=== PATIENT | male | born 1980 | race Caucasian/White ===

== ENCOUNTER → 2017-08-24 09:43 | Outpatient (CLI) | payer MEDICARE, OTHER, SELFPAY ==
--- NOTE | 2017-08-24 | DI.RAD.S_ITS ---
PROCEDURE: XR CERVICAL SPINE 2V OR 3V INDICATIONS: SPINAL STENOSIS TECHNIQUE: 3 view(s) of the cervical spine were acquired. COMPARISON: [facility], MR, C-SPINE W&WO CONTRAST, 05/19/2017, 15:44. FINDINGS: Bones: Straightening of cervical curvature. Mild disc space narrowing at C4-C5. No fractures or dislocations to the C7 level. There is discectomy and anterior fusion at C5-C6. The lateral masses of C1 appear intact on the odontoid view. No suspicious bony lesions. Soft tissues: No prevertebral soft tissue swelling. IMPRESSION: 1. Expected post surgical changes with discectomy and anterior fusion at C5-C6. 2. Mild loss of disc height at C4-C5. 3. Straightening of cervical curvature. Dictated by: Maegan Basurto M.D. on 08/24/2017 at 13:38 Approved by: Maegan Basurto M.D. on 08/24/2017 at 13:40
== END ==
PROVIDERS: PCP Internal Medicine; Visit Provider Neurological Surgery
DX: M48.02 Spinal stenosis, cervical region (principal); Z98.1 Arthrodesis status; M17.12 Unilateral primary osteoarthritis, left knee
CPT/HCPCS: 72040

== ENCOUNTER → 2017-10-27 13:03 | Outpatient (CLI) | payer MEDICARE, OTHER, SELFPAY ==
--- NOTE | 2017-10-27 | DI.RAD.S_ITS ---
PROCEDURE: XR CERVICAL SPINE 2V OR 3V INDICATIONS: SPINAL STENOSIS CERVICAL,SPONDYLOSIS WITH MYELOPATHY TECHNIQUE: 3 view(s) of the cervical spine were acquired. COMPARISON: [facility], CR, XR CERVICAL SPINE 2V OR 3V, 08/24/2017, 9:47. FINDINGS: Bones: No fractures or dislocations to the T1 level. Prior ACDF C5-C6 with hardware and bone graft in expected unchanged positions. There is loss of the normal cervical lordosis. Mild disc height loss again seen at the C4-C5 level unchanged. The lateral masses of C1 appear intact on the odontoid view. No suspicious bony lesions. Soft tissues: No prevertebral soft tissue swelling. IMPRESSION: 1. Stable postsurgical sequelae at the C5-C6 level and mild C4-C5 disc degeneration. Dictated by: Jose J Fraga [facility] Interpreted: James Arreaga MD on 10/27/2017 at 14:57 Approved by: James Arreaga M.D. on 10/27/2017 at 16:49
== END ==
PROVIDERS: Visit Provider Neurological Surgery
DX: M50.021 Cervical disc disorder at C4-C5 level with myelopathy (principal); M47.12 Other spondylosis with myelopathy, cervical region; M48.02 Spinal stenosis, cervical region; K42.9 Umbilical hernia without obstruction or gangrene
CPT/HCPCS: 72040; 99213

== ENCOUNTER → 2018-01-27 07:37 | Outpatient (CLI) | payer MEDICARE, OTHER, SELFPAY ==
--- NOTE | 2018-01-27 | DI.RAD.S_ITS ---
PROCEDURE: XR CERVICAL SPINE 2V OR 3V INDICATIONS: Spinal stenosis, cervical region TECHNIQUE: 3 view(s) of the cervical spine were acquired. COMPARISON: [facility], CR, XR CERVICAL SPINE 2V OR 3V, 10/27/2017, 13:58. FINDINGS: Bones: No fractures or dislocations to the C7 level. The lateral masses of C1 appear intact on the odontoid view. No suspicious bony lesions. C5-C6 ACDF and interbody cage graft in unchanged alignment. No evidence of hardware loosening. Straightening of the normal cervical lordosis. Mild narrowing of the C4-C5 disc space. Mild diffuse facet arthropathy Soft tissues: No prevertebral soft tissue swelling. IMPRESSION: Unchanged alignment of C5-C6 ACDF and interbody cage graft. Mild C4-C5 disc degeneration however unchanged. Straightening of the normal cervical lordosis and diffuse facet arthropathy. Dictated by: Gaston Gutierrez M.D. on 01/27/2018 at 9:27 Approved by: Gaston Gutierrez M.D. on 01/27/2018 at 9:28
== END ==
PROVIDERS: PCP Internal Medicine; Visit Provider Neurological Surgery
DX: M48.02 Spinal stenosis, cervical region (principal); M50.321 Other cervical disc degeneration at C4-C5 level; M47.812 Spondylosis without myelopathy or radiculopathy, cervical region; Z98.1 Arthrodesis status
CPT/HCPCS: 72040

== ENCOUNTER → 2018-01-31 09:03 | Outpatient (CLI) | payer MEDICARE, OTHER, SELFPAY ==
--- NOTE | 2018-01-31 | DI.MRI.S_ITS ---
PROCEDURE: MR HEAD/BRAIN WO/W CON INDICATIONS: PARETHESIAS TECHNIQUE: Noncontrast sagittal and axial FLAIR, axial and coronal T2 fast spin echo, axial VIBE, axial gradient echo, axial diffusion and ADC through the brain. After the administration of contrast, axial and coronal VIBE with fat saturation through the brain. COMPARISON: [facility], MR, BRAIN W&WO CONTRAST, 04/27/2017, 9:11. FINDINGS: Image quality: Excellent. CSF spaces: Ventricles are normal in size and shape. Basal cisterns are patent. No extra-axial fluid collections. Brain: No intracranial bleeds or mass effects. [place]-white matter interface appears intact. Focus of abnormal increased T2 signal in the right frontal periventricular white matter which has a longitudinal axis perpendicular to long axis lateral ventricle (Valentin's finger) is stable compared to 04/27/2017. Very small, punctate foci of increased T2 signal in the right frontal subcortical white matter are stable in size and contour compared to 04/27/2017. No new white matter signal abnormalities identified. No abnormal intracranial enhancement. Diffusion weighted images show no acute ischemic insults. Brainstem appears normal. 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 Normal intravascular flow voids are present. Skull and face: Calvarial marrow signal is normal. Orbits appear normal. Sinuses: Sinuses and mastoids are clear. IMPRESSION: 1. Foci of increased T2 signal involving the right frontal periventricular and subcortical white matter are stable in size and contour compared to 04/27/2017. Right frontal periventricular white matter lesion has imaging characteristics highly suspicious for multiple sclerosis. No new white matter lesions identified. 2. No abnormal postcontrast enhancement. Dictated by: Rosaura Dickinson MD, PhD on 01/31/2018 at 10:09 Approved by: Rosaura Dickinson MD, PhD on 01/31/2018 at 10:16
== END ==
PROVIDERS: PCP Internal Medicine; Visit Provider Physician Assistant
DX: R20.2 Paresthesia of skin (principal)
CPT/HCPCS: 70553

== ENCOUNTER → 2018-11-17 07:03 | Outpatient (CLI) | payer MEDICARE, OTHER, SELFPAY ==
[2018-11-17 08:37] LABS: Add Manual Diff / Slide Review NO; Basophils Absolute Auto 100 /uL (0-100); Basophils Percent Auto 1.1 % (0-2); Eosinophils Absolute Auto 300 /uL (0-450); Eosinophils Percent Auto 5.9 % (2-4); Hematocrit 40.9 % (41-53); Hemoglobin 14.3 g/dL (13.5-17.5); Lymphocytes Absolute Auto 2400 /uL (1100-4500); Lymphocytes Percent Auto 42.2 % (25-40); Mean Corpuscular Hemoglobin 33.6 PG (26-34); Mean Corpuscular Volume 95.8 fL (80-100); Monocytes Absolute Auto 600 /uL (0-900); Monocytes Percent Auto 10.2 % (3-14); Neutrophils Absolute Auto 2300 /uL (1500-7000); Neutrophils Percent Auto 40.6 % (50-75); Platelet Count 238 X10^3/uL (150-400); Red Blood Cell Count 4.26 X10^6/uL (4.5-5.9); Red Cell Distribution Width 13.4 % (11.6-14.8); White Blood Cell Count 5.6 X10^3/uL (4.5-11.0)
[2018-11-17 09:21] LABS: Alanine Aminotransferase 29 IU/L (21-72); Albumin 4.4 g/dL (3.5-5.0); Albumin Globulin Ratio 1.6 (1.0-2.8); Alkaline Phosphatase 71 U/L (38-126); Aspartate Aminotransferase 61 IU/L (17-59); BUN Creatinine Ratio 11.1 (6-22); Bilirubin Total 0.4 mg/dL (0.2-1.3); Blood Urea Nitrogen 10 mg/dL (9-20); Calcium 9.8 mg/dL (8.4-10.2); Carbon Dioxide 28 mmol/L (22-32); Chloride 102 mmol/L (98-107); Estimated Glomerular Filt Rate > 60.0 mL/min (>60); Globulin 2.8 g/dL (1.7-4.1); Glucose 92 mg/dL (70-100); HEMOLYSIS < 15 (0-50); Potassium 4.5 mmol/L (3.4-5.1); Sodium 141 mmol/L (137-145); Total Protein 7.2 g/dL (6.3-8.2)
[2018-11-17 09:25] LABS: C-Reactive Protein Quant < 0.5 mg/dL (<1.0)
== END ==
PROVIDERS: Internal Medicine Rheumatology; PCP Internal Medicine; Visit Provider Internal Medicine
DX: Z79.899 Other long term (current) drug therapy (principal); M13.80 Other specified arthritis, unspecified site
CPT/HCPCS: 36415; 80053; 85025; 86140

== ENCOUNTER → 2019-01-30 07:32 | Outpatient (CLI) | payer MEDICARE, OTHER, SELFPAY ==
--- NOTE | 2019-01-30 | DI.MRI.S_ITS ---
PROCEDURE: MR CERVICAL SPINE WO/W CON INDICATIONS: abn brain mri TECHNIQUE: Noncontrast sagittal T1 spin echo and T2 fast spin echo, sagittal STIR, sagittal PD fast spin echo, foraminal oblique sagittal T2 fast spin echo, axial gradient echo or T2 fast spin echo through the cervical spine. After the administration of contrast, sagittal and axial T1 spin echo with fat saturation through the cervical spine. COMPARISON: [facility], CR, XR CERVICAL SPINE 2V OR 3V, 01/27/2018, 7:48. [facility], CR, XR CERVICAL SPINE 2V OR 3V, 10/27/2017, 13:58. [facility], CR, XR CERVICAL SPINE 2V OR 3V, 08/24/2017, 9:47. [facility], MR, C-SPINE W&WO CONTRAST, 05/19/2017, 15:44. [facility], MR, MR HEAD/BRAIN WO/W CON, 01/30/2019, 7:55. FINDINGS: Image quality: Excellent. Alignment and curvature: There is normal bony alignment. Bones: Postsurgical changes compatible C5-C6 ACDF. Marrow demonstrates normal overall signal. Spinal cord: Visualized spinal cord is normal in size, without white matter lesions. No suspicious intramedullary enhancement. No cerebellar tonsillar herniation. Paraspinous soft tissues: No paravertebral masses or suspicious enhancement. C2-C3: Loss of disc signal. Minimal, diffuse disc bulge. No central stenosis. No neural foraminal narrowing. No neural compression. C3-C4: Loss of disc signal. Minimal, diffuse disc bulge. Mild No central stenosis. No neural foraminal narrowing. No neural compression. C4-C5: Loss of disc signal and slight loss of disc height. Mild, diffuse disc bulge. Moderate narrowing of the central canal. Mild bilateral neural foraminal narrowing. No neural compression. C5-C6: Status post discectomy and fusion. No central stenosis. No neural foraminal narrowing. No neural compression. C6-C7: Loss of disc signal. Mild, diffuse disc bulge. Mild to moderate narrowing of the central canal. Mild right neural foraminal narrowing. No neural compression. C7-T1: Normal appearance. IMPRESSION: 1. No abnormal spinal cord signal or suspicious postcontrast enhancement. 2. Status post C5-C6 ACDF. 3. Multilevel degenerative disc disease. 4. Moderate C4-C5 central canal narrowing. Mild to moderate C6-C7 central canal narrowing. 5. Mild bilateral C4-C5 neural foraminal narrowing. Mild right C6-C7 neural foraminal narrowing. 6. No neural compression. Dictated by: Rosaura Dickinson MD, PhD on 01/30/2019 at 12:20 Approved by: Rosaura Dickinson MD, PhD on 01/30/2019 at 12:28
--- NOTE | 2019-01-30 | DI.MRI.S_ITS ---
PROCEDURE: MR HEAD/BRAIN WO/W CON INDICATIONS: ABNORMAL BRAIN MRI TECHNIQUE: Noncontrast axial T1 spin echo, axial T2 fast spin echo, sagittal and axial FLAIR, coronal T2 fast spin echo, axial gradient echo, axial diffusion and ADC through the brain. After the administration of contrast, axial and coronal 3D VIBE or T1 spin echo with fat saturation through the brain. COMPARISON: [facility], , MR HEAD/BRAIN WO/W CON, 01/31/2018, 9:29. FINDINGS: Image quality: Excellent. CSF Spaces: Basal cisterns are patent. No extra-axial fluid collections. Ventricles are normal in size and shape. Brain: No midline shift. No intracranial bleeds or masses. No abnormal intracranial enhancement. The previously seen focus of elevated FLAIR signal intensity within the right frontal periventricular white matter measuring roughly 12 mm is unchanged, demonstrating a long axis perpendicular to the long axis of the lateral ventricle. The punctate foci of elevated FLAIR signal within the right posterior superior frontal subcortical white matter are also unchanged. There are no new regions of abnormal signal intensity within the cerebrum nor cerebellum. The brainstem appears normal. Diffusion-weighted images demonstrate no acute ischemic insults. No chronic ischemic insults. Normal intravascular flow voids are present. Skull and face: Calvarial marrow is normal in signal. Orbits appear normal. Sinuses: Sinuses and mastoids appear clear. IMPRESSION: 1. No significant change in right frontal white matter lesions, which would be consistent with multiple sclerosis in the appropriate clinical and laboratory setting. Dictated by: Barbraa Tucker M.D. on 01/30/2019 at 9:44 Approved by: Barbara Tucker M.D. on 01/30/2019 at 9:48
--- NOTE | 2019-01-30 | DI.MRI.S_ITS ---
PROCEDURE: MR THORACIC SPINE WO/W CON INDICATIONS: ABNORMAL BRAIN MRI TECHNIQUE: Noncontrast sagittal T1 spin echo and T2 fast spin echo, sagittal STIR, axial T1 and T2 fast spin echo through the thoracic spine. After the administration of contrast, axial and sagittal T1 spin echo with fat saturation through the thoracic spine. COMPARISON: None. FINDINGS: Image quality: Excellent. Alignment and curvature: There is normal bony alignment. Marrow: Marrow is of normal overall signal. No acute vertebral body compression fractures. Spinal cord: Visualized spinal cord is of normal signal and size, without abnormal enhancement. Paraspinous soft tissues: No paravertebral masses or abnormal enhancement. Miscellaneous: Central canal and foramina appear widely patent at all scanned levels. IMPRESSION: 1. No abnormal spinal cord signal or suspicious intramedullary postcontrast enhancement. 2. No central stenosis. 3. No neural foraminal narrowing. 4. No neural compression. Dictated by: Rosaura Dickinson MD, PhD on 01/30/2019 at 13:20 Approved by: Rosaura Dickinson MD, PhD on 01/30/2019 at 13:22
== END ==
PROVIDERS: PCP Internal Medicine; Visit Provider Internal Medicine
DX: R90.89 Other abnormal findings on diagnostic imaging of central nervous system (principal); M50.323 Other cervical disc degeneration at C6-C7 level; M48.02 Spinal stenosis, cervical region; Z98.1 Arthrodesis status
CPT/HCPCS: 70553; 72156; 72157; A9579

== ENCOUNTER → 2019-04-17 12:09 | Outpatient (CLI) | payer MEDICARE, OTHER, SELFPAY ==
[2019-04-17 13:09] LABS: Add Manual Diff / Slide Review NO; Basophils Absolute Auto 100 /uL (0-100); Eosinophils Absolute Auto 500 /uL (0-450); Eosinophils Percent Auto 6.5 % (2-4); Hematocrit 40.3 % (41-53); Hemoglobin 14.1 g/dL (13.5-17.5); Lymphocytes Absolute Auto 2600 /uL (1100-4500); Lymphocytes Percent Auto 37.6 % (25-40); Mean Corpuscular HGB Conc 35.1 % (30-36); Mean Corpuscular Hemoglobin 33.6 PG (26-34); Mean Corpuscular Volume 95.6 fL (80-100); Monocytes Absolute Auto 600 /uL (0-900); Monocytes Percent Auto 9.2 % (3-14); Neutrophils Absolute Auto 3200 /uL (1500-7000); Neutrophils Percent Auto 45.7 % (50-75); Platelet Count 225 X10^3/uL (150-400); Red Blood Cell Count 4.21 X10^6/uL (4.5-5.9); Red Cell Distribution Width 13.1 % (11.6-14.8)
[2019-04-17 13:25] LABS: Alanine Aminotransferase 28 IU/L (<50); Albumin 4.6 g/dL (3.5-5.0); Albumin Globulin Ratio 1.4 (1.0-2.8); Alkaline Phosphatase 73 U/L (38-126); Aspartate Aminotransferase 67 IU/L (17-59); BUN Creatinine Ratio 12.2 (6-22); Bilirubin Total 0.4 mg/dL (0.2-1.3); Blood Urea Nitrogen 11 mg/dL (9-20); Calcium 9.5 mg/dL (8.4-10.2); Carbon Dioxide 28 mmol/L (22-32); Chloride 104 mmol/L (98-107); Estimated Glomerular Filt Rate > 60.0 mL/min (>60); Globulin 3.2 g/dL (1.7-4.1); Glucose 95 mg/dL (70-100); HEMOLYSIS < 15 (0-50); Potassium 3.9 mmol/L (3.4-5.1); Sodium 139 mmol/L (137-145); Total Protein 7.8 g/dL (6.3-8.2)
[2019-04-17 13:29] LABS: C-Reactive Protein Quant < 0.5 mg/dL (<1.0)
== END ==
PROVIDERS: PCP Internal Medicine; Referring Provider Internal Medicine Rheumatology; Visit Provider Internal Medicine Rheumatology
DX: M13.80 Other specified arthritis, unspecified site (principal); Z79.899 Other long term (current) drug therapy
CPT/HCPCS: 36415; 80053; 85025; 86140

== ENCOUNTER → 2019-08-07 11:42 | Outpatient (CLI) | payer MEDICARE, OTHER, SELFPAY ==
[2019-08-07 14:07] LABS: Add Manual Diff / Slide Review NO; Basophils Absolute Auto 0 /uL (0-100); Basophils Percent Auto 0.7 % (0-2); Eosinophils Absolute Auto 200 /uL (0-450); Eosinophils Percent Auto 2.7 % (2-4); Hematocrit 42.6 % (41-53); Hemoglobin 15.1 g/dL (13.5-17.5); Lymphocytes Absolute Auto 1900 /uL (1100-4500); Lymphocytes Percent Auto 33.6 % (25-40); Mean Corpuscular HGB Conc 35.4 % (30-36); Mean Corpuscular Hemoglobin 33.2 PG (26-34); Mean Corpuscular Volume 93.7 fL (80-100); Monocytes Absolute Auto 600 /uL (0-900); Monocytes Percent Auto 10.3 % (3-14); Neutrophils Absolute Auto 3000 /uL (1500-7000); Neutrophils Percent Auto 52.7 % (50-75); Platelet Count 217 X10^3/uL (150-400); Red Blood Cell Count 4.55 X10^6/uL (4.5-5.9); Red Cell Distribution Width 12.9 % (11.6-14.8); White Blood Cell Count 5.8 X10^3/uL (4.5-11.0)
[2019-08-07 14:31] LABS: Alanine Aminotransferase 21 IU/L (<50); Albumin 4.6 g/dL (3.5-5.0); Albumin Globulin Ratio 1.5 (1.0-2.8); Alkaline Phosphatase 85 U/L (38-126); Aspartate Aminotransferase 61 IU/L (17-59); Bilirubin Total 0.6 mg/dL (0.2-1.3); Blood Urea Nitrogen 15 mg/dL (9-20); Calcium 9.7 mg/dL (8.4-10.2); Carbon Dioxide 27 mmol/L (22-32); Chloride 100 mmol/L (98-107); Estimated Glomerular Filt Rate > 60.0 mL/min (>60); Glucose 79 mg/dL (70-100); HEMOLYSIS < 15 (0-50); Lipase 364 U/L (23-300); Potassium 3.6 mmol/L (3.4-5.1); Sodium 137 mmol/L (137-145); Total Protein 7.6 g/dL (6.3-8.2)
[2019-08-07 15:37] LABS: Clostridium Difficile Tox PCR Negative for C. diff
== END ==
PROVIDERS: PCP Internal Medicine; Referring Provider Student in an Organized Health Care Education/Training Program; Visit Provider Student in an Organized Health Care Education/Training Program
DX: R19.7 Diarrhea, unspecified (principal); R11.10 Vomiting, unspecified; R10.84 Generalized abdominal pain
CPT/HCPCS: 36415; 80053; 83690; 85025; 87045; 87177; 87493; 87899

== ENCOUNTER → 2019-08-17 15:00 | Outpatient (CLI) | payer MEDICARE, OTHER, SELFPAY ==
[2019-08-17 16:12] LABS: Add Manual Diff / Slide Review NO; Basophils Absolute Auto 0 /uL (0-100); Basophils Percent Auto 0.5 % (0-2); Eosinophils Absolute Auto 200 /uL (0-450); Eosinophils Percent Auto 2.2 % (2-4); Hematocrit 40.3 % (41-53); Hemoglobin 13.6 g/dL (13.5-17.5); Lymphocytes Absolute Auto 2100 /uL (1100-4500); Lymphocytes Percent Auto 30.8 % (25-40); Mean Corpuscular HGB Conc 33.8 % (30-36); Mean Corpuscular Hemoglobin 32.3 PG (26-34); Mean Corpuscular Volume 95.5 fL (80-100); Monocytes Absolute Auto 500 /uL (0-900); Neutrophils Absolute Auto 4000 /uL (1500-7000); Neutrophils Percent Auto 58.5 % (50-75); Platelet Count 253 X10^3/uL (150-400); Red Blood Cell Count 4.22 X10^6/uL (4.5-5.9); Red Cell Distribution Width 13.5 % (11.6-14.8); White Blood Cell Count 6.8 X10^3/uL (4.5-11.0)
[2019-08-17 16:39] LABS: Alanine Aminotransferase 21 IU/L (<50); Albumin 4.5 g/dL (3.5-5.0); Albumin Globulin Ratio 1.6 (1.0-2.8); Alkaline Phosphatase 75 U/L (38-126); Aspartate Aminotransferase 67 IU/L (17-59); BUN Creatinine Ratio 9.5 (6-22); Bilirubin Total 0.4 mg/dL (0.2-1.3); Blood Urea Nitrogen 9 mg/dL (9-20); Calcium 9.6 mg/dL (8.4-10.2); Carbon Dioxide 27 mmol/L (22-32); Chloride 106 mmol/L (98-107); Estimated Glomerular Filt Rate > 60.0 mL/min (>60); Globulin 2.9 g/dL (1.7-4.1); Glucose 110 mg/dL (70-100); HEMOLYSIS < 15 (0-50); Potassium 3.9 mmol/L (3.4-5.1); Sodium 140 mmol/L (137-145); Total Protein 7.4 g/dL (6.3-8.2)
[2019-08-17 16:42] LABS: C-Reactive Protein Quant < 0.5 mg/dL (<1.0)
== END ==
PROVIDERS: PCP Internal Medicine; Referring Provider Internal Medicine Rheumatology; Visit Provider Internal Medicine Rheumatology
DX: Z79.899 Other long term (current) drug therapy (principal); M13.80 Other specified arthritis, unspecified site
CPT/HCPCS: 36415; 80053; 85025; 86140

== ENCOUNTER → 2019-12-22 | Outpatient (CLI) | payer MEDICARE, OTHER, SELFPAY ==
--- NOTE | 2019-12-22 | DI.RAD.S_ITS ---
PROCEDURE: XR TOE RT MIN 2V INDICATIONS: STRAIN OF FOURTH TOE OF RIGHT FOOT TECHNIQUE: 3 views of the right toe(s) acquired. COMPARISON: None. FINDINGS: Bones: No fractures or dislocations. No suspicious bony lesions. Soft tissues: No suspicious soft tissue densities. IMPRESSION: No fracture. If the patient's pain or other symptoms persist, consider further evaluation with MRI Dictated by: Gaston Gutierrez M.D. on 12/22/2019 at 16:36 Approved by: Gaston Gutierrez M.D. on 12/22/2019 at 16:39
[2019-12-22 15:20] LABS: Add Manual Diff / Slide Review NO; Basophils Absolute Auto 100 /uL (0-100); Basophils Percent Auto 0.9 % (0-2); Eosinophils Absolute Auto 500 /uL (0-450); Eosinophils Percent Auto 6.7 % (2-4); Hematocrit 40.6 % (41-53); Hemoglobin 13.6 g/dL (13.5-17.5); Lymphocytes Absolute Auto 2200 /uL (1100-4500); Lymphocytes Percent Auto 30.7 % (25-40); Mean Corpuscular HGB Conc 33.5 % (30-36); Mean Corpuscular Hemoglobin 30.9 PG (26-34); Mean Corpuscular Volume 92.5 fL (80-100); Monocytes Absolute Auto 600 /uL (0-900); Monocytes Percent Auto 8.4 % (3-14); Neutrophils Absolute Auto 3800 /uL (1500-7000); Neutrophils Percent Auto 53.3 % (50-75); Platelet Count 302 X10^3/uL (150-400); Red Cell Distribution Width 12.3 % (11.6-14.8); White Blood Cell Count 7.1 X10^3/uL (4.5-11.0)
[2019-12-22 15:40] LABS: BUN Creatinine Ratio 14.9 (6-22); Blood Urea Nitrogen 13 mg/dL (9-20); C-Reactive Protein Quant 2.4 mg/dL (<1.0); Calcium 9.3 mg/dL (8.4-10.2); Carbon Dioxide 30 mmol/L (22-32); Chloride 106 mmol/L (98-107); Estimated Glomerular Filt Rate > 60.0 mL/min (>60); Glucose 119 mg/dL (70-100); HEMOLYSIS < 15 (0-50); Potassium 3.9 mmol/L (3.4-5.1); Sodium 142 mmol/L (137-145); Uric Acid 6.6 mg/dL (3.5-8.5)
[2019-12-22 16:17] LABS: Erythrocyte Sedimentation Rate 40 MM/HR (0-15)
== END ==
PROVIDERS: PCP Physician Assistant; Referring Provider Physician Assistant; Visit Provider Physician Assistant
DX: D72.19 Other eosinophilia (principal); S96.911A Strain of unspecified muscle and tendon at ankle and foot level, right foot, initial encounter; M13.0 Polyarthritis, unspecified
CPT/HCPCS: 36415; 73620; 80048; 84550; 85025; 85651; 86140

== ENCOUNTER → 2020-05-20 10:03 | Outpatient (CLI) | payer MEDICARE, OTHER, SELFPAY ==
[2020-05-20 13:47] LABS: COVID19 -Nasal RAPID Negative (Negative)
== END ==
PROVIDERS: PCP Physician Assistant; Visit Provider Physician Assistant
DX: J02.9 Acute pharyngitis, unspecified (principal); R05 Cough; R06.02 Shortness of breath; R51.9 Headache, unspecified; Z20.822 Contact with and (suspected) exposure to COVID-19
CPT/HCPCS: 87635

== ENCOUNTER → 2021-02-18 12:31 | Outpatient (CLI) | payer MEDICARE, OTHER, SELFPAY ==
[2021-02-18 14:55] LABS: COVID19 -Nasal RAPID Negative (Negative)
== END ==
PROVIDERS: PCP Physician Assistant; Referring Provider Nurse Practitioner Family; Visit Provider Nurse Practitioner Family
DX: Z20.822 Contact with and (suspected) exposure to COVID-19 (principal)
CPT/HCPCS: 87635

== ENCOUNTER → 2021-09-11 11:14 | Outpatient (CLI) | payer MEDICARE, OTHER, SELFPAY ==
--- NOTE | 2021-09-11 11:16 | DI.RAD.S_ITS ---
PROCEDURE: XR THORACIC SPINE 3V INDICATIONS: Back pain TECHNIQUE: 3 views of the thoracic spine were acquired. COMPARISON: None. FINDINGS: Bones: No fractures or dislocations. No suspicious bony lesions. 12 pairs of ribs are noted, and appear intact where visualized. C5-C6 ACDF. Soft tissues: No paravertebral stripe thickening. IMPRESSION: No fracture. No acute osseous lesion. If symptoms and/or clinical suspicion for pathology persists, evaluation with MRI should be considered for further assessment. Dictated by: Rosaura Dickinson MD, PhD on 09/11/2021 at 16:44 Approved by: Rosaura Dickinson MD, PhD on 09/11/2021 at 16:50
--- NOTE | 2021-09-11 11:16 | DI.RAD.S_ITS ---
PROCEDURE: XR LUMBAR SPINE 2-3V INDICATIONS: Back pain TECHNIQUE: 3 views of the lumbar spine were acquired. COMPARISON: None. FINDINGS: Bones: 5 [id number] vertebrae are present. There is normal bony alignment. No vertebral body compression fractures. No suspicious bony lesions. Soft tissues: Overlying bowel gas pattern is normal. No suspicious soft tissue calcifications. IMPRESSION: No fracture. No osseous lesion. If symptoms and/or clinical suspicion for pathology persists, evaluation with MRI should be considered for further assessment. Dictated by: Rosaura Dickinson MD, PhD on 09/11/2021 at 16:50 Approved by: Rosaura Dickinson MD, PhD on 09/11/2021 at 16:50
== END ==
PROVIDERS: PCP Physician Assistant; Referring Provider Nurse Practitioner Family; Visit Provider Nurse Practitioner Family
DX: S29.012A Strain of muscle and tendon of back wall of thorax, initial encounter (principal); X58.XXXA Exposure to other specified factors, initial encounter; Z98.1 Arthrodesis status; M54.9 Dorsalgia, unspecified
CPT/HCPCS: 72072; 72100

== ENCOUNTER 2021-09-17 20:15 | Emergency (ER) | payer MEDICARE, OTHER, SELFPAY ==
[2021-09-17 20:47] VITALS: BP 126/83; PULSE 92; RESP 18; TEMP 36.9; O2SAT 97; BMI 30.7
--- NOTE | 2021-09-17 20:57 | ED_ITS ---
HPI - Recheck/Abnormal Lab/Rx General Chief Complaint: Recheck/Abnormal Lab/Rx Stated Complaint: sent by MD for elevated D Dimer Time Seen by Provider: 09/17/21 20:57 Source: patient Mode of arrival: Ambulatory History of Present Illness HPI narrative: 41-year-old gentleman with a history of multiple autoimmune disorders including eosinophilic esophagitis was seen by his primary care doctor today with complaints of left calf pain and a persistent cough. Both of these have been present for almost 3 months. Blood work was done revealing a D-dimer at 0.71 with normal range being 0.27-0.49. White count was 8, H&H is 15.1 and 44.9, pl atelets 310, C reactive protein at 2.9, chemistries otherwise unremarkable. His primary care doctor called him this evening and suggested he come to the ER for further evaluation light of the elevated D-dimer and calf pain. Medications include gabapentin, trazodone, Zofran, Zyrtec, propranolol, Claritin, omeprazole Related Data Home Medications Medication Instructions Recorded Confirmed gabapentin 600 mg tablet 600 mg PO DAILY 10/27/17 09/11/21 duloxetine PO 01/17/20 09/11/21 methylprednisolone PO 01/17/20 09/11/21 Allergies Allergy/AdvReac Type Severity Reaction Status Date / Time pneumococcal vaccine Allergy Unknown Verified 09/11/21 10:27 Sulfa (Sulfonamide Allergy Unknown Verified 09/11/21 10:27 Antibiotics) tree and shrub pollen Allergy Verified 09/11/21 10:27 venom-honey bee Allergy Verified 09/11/21 10:27 Review of Systems Review of Systems Narrative: Pertinent positive and negative findings as per HPI Remainder of review of systems is otherwise unremarkable for Constitutional: Fevers, chills, weakness ENT: No sore throat, neck pain, ear pain CV: Chest pain, palpitations, GI: Nausea, vomiting, diarrhea, : Dysuria, hematuria, Patient History Medical History Laceration of right lower extremity Rheumatoid arthritis Seasonal allergies Surgical History S/P cervical spinal fusion Family History Father Hypertension Heart disease Diabetes mellitus Mother Heart disease Diabetes mellitus Grandmother Cancer Grandfather Cancer Social History marital status: household members: spouse and children occupational status: student Smoking Status: Never smoker alcohol intake: never substance use type: does not use Smoking Status: Never smoker Exam Initial Vital Signs Initial Vital Signs: Vital Signs Temperature 98.5 F 09/17/21 20:47 Pulse Rate 92 H 09/17/21 20:47 Respiratory Rate 18 09/17/21 20:47 Blood Pressure 126/83 09/17/21 20:47 Pulse Oximetry 97 09/17/21 20:47 Oxygen Delivery Method 09/17/21 20:47 General: Healthy appearing, in no acute distress. Able to give a complete and coherent history. Well-nourished well-developed HEENT: Moist mucous membranes, normal sclera with reactive pupils, Neck: No JVD, supple Respiratory: Lungs are clear to auscultation, no wheezing no rales no rhonchi. Full and symmetrical air movement Cardiac: Regular rate and rhythm no murmurs no bruits Abdomen: Soft, nontender, good bowel tones, no flank pain Skin: Warm and dry, no rashes Neurologic: Grossly neurologically intact with no obvious asymmetries or abnormalities Extremities: No trauma, well perfused, no lower extremity edema Psych: Cooperative, appropriate insight and affect Course Orders Ordered: ED Orders 09/17/21 20:55 D Dimer Stat Trop I [Troponin I] Stat 09/17/21 21:31 US periph venous low extrem lt Stat 09/17/21 22:12 CT angio chest PE protocol Stat Vital Signs Vital signs: Vital Signs - 8 hr 09/17/21 20:47 Temperature 98.5 F Pulse Rate 92 H Respiratory Rate 18 Blood Pressure 126/83 Pulse Oximetry 97 Oxygen Delivery Method Room Air MDM - Recheck/Abnormal Lab/Rx Lab Data Labs: Lab Results 09/17/21 09/17/21 Range/Units 20:55 20:55 D-Dimer 701 H (<500) ng/ml Troponin I < 0.012 (0.01-0.034) ng/mL Imaging Data US - DVT: Radiologist's Impression: COMPARISON:? None. ? FINDINGS:? The common femoral, femoral and popliteal veins are normally compressible, and free of intraluminal thrombus.? Color and pulse Doppler demonstrate normal phasic intraluminal flow.? There is normal augmentation response to distal compression maneuver. ? ? IMPRESSION:? ? 1. No evidence of deep venous thrombosis in the left lower extremity. ? ? Dictated by: Luke Moreno M.D. on 09/17/2021 at 21:57 ? ? CT scan - chest: Radiologist's Impression: FINDINGS:? Image quality:? Excellent.? ? Pulmonary arteries:? There is suboptimal opacification of the pulmonary arteries.? Pulmonary arteries are normal in size, and demonstrate no intraluminal filling defects to suggest central pulmonary embolism.? Evaluation of segmental and subsegmental branches is limited by suboptimal contrast opacification.? ? Lower Neck: No lymphadenopathy by size criteria. Thyroid:? Visualized thyroid demonstrates no discrete nodules. Axillae: No lymphadenopathy by size criteria. Chest Wall:? Unremarkable.? Bones: Visualized osseous structures demonstrate no suspicious lesions. ? Lungs and Airways:? No acute consolidation.? There is mild dependent atelectasis.? There is a 0.3 cm right middle lobe pulmonary nodule on series 5, image 131. Nodular thickening along the right major fissure is present, measuring up to approximately 0.9 cm. The trachea and central airways are patent. Pleura: No pneumothorax or pleural effusions.? ? Heart: Heart size is normal.? No pericardial effusion. Thoracic Vessels: The thoracic aorta is normal in size.? Mediastinum and Gaby: No lymphadenopathy by size criteria. Esophagus: No wall thickening. No hiatal hernia. ? Abdomen:? Visualized upper abdominal solid organs appear normal in the early arterial phase of enhancement.? ? IMPRESSION:? ? 1. No evidence of central pulmonary embolism, with evaluation of segmental and subsegmental branches limited by suboptimal contrast opacification. ? 2. No acute airspace consolidation. ? 3. Indeterminate pulmonary nodules including nodular thickening along the right major fissure.? Consider follow-up CT in 6 months to demonstrate stability if clinically indicated.? ? ? Dictated by: Luke Moreno M.D. on 09/17/2021 at 23:59 ? ? [facility] Narrative Medical decision making narrative: 41-year-old gentleman with autoimmune disorder and elevated D-dimer in the setting of left calf pain and persistent cough. Repeated D-dimer is in fact elevated and CT scan of the chest shows no pulmonary emboli but he does have nonspecific pulmonary nodules and is notified of this. He is given a copy of the CT scan report. Reassurance is given, at this point he is safe for home discharge and can follow up with his primary care physician. Discharge Plan Departure Patient Disposition: Home Clinical Impression: D-dimer, elevated Activity Restrictions/Additional Instructions: Thank you for coming in today The D-dimer is a nonspecific lab that can suggest breakdown of blood clots which is why we confirmed that you do not have a DVT in your calf and you do not have any blood clots in your lungs. It can simply be elevated with other inflammatory markers such as sed rate and C reactive protein-both of which are elevated for you because of your autoimmune disease. At this point, there is no additional workup that is required. I have given you a copy of the CT report to share with your physician. There is a note of incidentally found pulmonary nodules. Is very common to find these on chest CTs. Please review follow-up with your primary care physician If you find that you are getting worse or develop any new symptoms, please feel free to return to the emergency department for further evaluation. Prescriptions: No Action methylprednisolone PO duloxetine PO gabapentin 600 mg tablet 600 mg PO DAILY Referrals: Brielle Mondragon PA-C [Primary Care Provider] -
[2021-09-17 21:18] LABS: D Dimer 701 ng/ml (<500)
--- NOTE | 2021-09-17 21:31 | DI.US.S_ITS ---
PROCEDURE: US PERIPH VENOUS LOW EXTREM LT INDICATIONS: LEFT CALF PAIN TECHNIQUE: Real-time imaging, as well as color and pulse Doppler interrogation, were performed of the lower extremity deep veins from the inguinal ligament to the popliteal fossa. COMPARISON: None. FINDINGS: The common femoral, femoral and popliteal veins are normally compressible, and free of intraluminal thrombus. Color and pulse Doppler demonstrate normal phasic intraluminal flow. There is normal augmentation response to distal compression maneuver. IMPRESSION: 1. No evidence of deep venous thrombosis in the left lower extremity. Dictated by: Luke Moreno M.D. on 09/17/2021 at 21:57 Approved by: Luke Moreno M.D. on 09/17/2021 at 21:57
[2021-09-17 21:36] LABS: Troponin I < 0.012 ng/mL (0.01-0.034)
--- NOTE | 2021-09-17 22:12 | DI.CT.S_ITS ---
PROCEDURE: CT ANGIO CHEST PE PROTOCOL INDICATIONS: elevated dimer, cough TECHNIQUE: After the administration of intravenous contrast, 2 mm thick sections acquired from the pulmonary apices to the posterior costophrenic angles. 3-dimensional maximum intensity projection (MIP) coronal and sagittal reformats were then acquired through the thorax. For radiation dose reduction, the following was used: automated exposure control, adjustment of mA and/or kV according to patient size. COMPARISON: None. FINDINGS: Image quality: Excellent. Pulmonary arteries: There is suboptimal opacification of the pulmonary arteries. Pulmonary arteries are normal in size, and demonstrate no intraluminal filling defects to suggest central pulmonary embolism. Evaluation of segmental and subsegmental branches is limited by suboptimal contrast opacification. Lower Neck: No lymphadenopathy by size criteria. Thyroid: Visualized thyroid demonstrates no discrete nodules. Axillae: No lymphadenopathy by size criteria. Chest Wall: Unremarkable. Bones: Visualized osseous structures demonstrate no suspicious lesions. Lungs and Airways: No acute consolidation. There is mild dependent atelectasis. There is a 0.3 cm right middle lobe pulmonary nodule on series 5, image 131. Nodular thickening along the right major fissure is present, measuring up to approximately 0.9 cm. The trachea and central airways are patent. Pleura: No pneumothorax or pleural effusions. Heart: Heart size is normal. No pericardial effusion. Thoracic Vessels: The thoracic aorta is normal in size. Mediastinum and Gaby: No lymphadenopathy by size criteria. Esophagus: No wall thickening. No hiatal hernia. Abdomen: Visualized upper abdominal solid organs appear normal in the early arterial phase of enhancement. IMPRESSION: 1. No evidence of central pulmonary embolism, with evaluation of segmental and subsegmental branches limited by suboptimal contrast opacification. 2. No acute airspace consolidation. 3. Indeterminate pulmonary nodules including nodular thickening along the right major fissure. Consider follow-up CT in 6 months to demonstrate stability if clinically indicated. Dictated by: Luke Moreno M.D. on 09/17/2021 at 23:59 Approved by: Luke Moreno M.D. on 09/18/2021 at 0:03
[2021-09-18 00:57] VITALS: BP 127/86; PULSE 86; RESP 18; O2SAT 99
== END 2021-09-18 00:59 | disposition home or self-care (01) ==
PROVIDERS: Emergency Provider Emergency Medicine; PCP Physician Assistant
DX: R79.89 Other specified abnormal findings of blood chemistry (principal); D89.89 Other specified disorders involving the immune mechanism, not elsewhere classified; R05.9 Cough, unspecified; M79.605 Pain in left leg
CPT/HCPCS: 36415; 71275; 84484; 85379; 93971; 99283; 99284; Q9967

== ENCOUNTER → 2021-11-10 06:56 | Outpatient (CLI) | payer MEDICARE, OTHER, SELFPAY ==
--- NOTE | 2021-11-10 06:57 | DI.US.S_ITS ---
PROCEDURE: US ABDOMEN LIMITED INDICATIONS: ELEVATED LFT'S TECHNIQUE: Real-time scanning was performed of the abdominal and retroperitoneal organs, with image documentation. COMPARISON: None. FINDINGS: Liver: The liver measures 16.4 cm in length and demonstrates increased echogenicity. Gallbladder: The gallbladder is contracted and the wall measures up to 3.3 mm in diameter. No stones or sludge. No pericholecystic fluid or sonographic Tripathi sign. Biliary ducts: Intrahepatic bile ducts are non-dilated. Extrahepatic bile duct caliber measures 4.1 mm. Normal is 6-7 mm or less in diameter, or 10 mm or less post-cholecystectomy. Pancreas: Not visualized due to overlying bowel gas. IMPRESSION: 1. Increased hepatic echogenicity noted likely related to fatty infiltration of the liver but other sources of hepatocellular disease cannot be excluded. 2. Gallbladder appears contracted and the wall is the upper limits of normal for thickness. There are no ancillary findings such as free fluid or pain to suggest acute cholecystitis. Findings are equivocal for acute cholecystitis. 3. No findings to suggest choledocholithiasis. Dictated by: Consuelo Monahan M.D. on 11/10/2021 at 9:37 Approved by: Consuelo Monahan M.D. on 11/10/2021 at 9:38
== END ==
PROVIDERS: PCP Physician Assistant; Referring Provider Physician Assistant; Visit Provider Physician Assistant
DX: R79.89 Other specified abnormal findings of blood chemistry (principal)
CPT/HCPCS: 76705

== ENCOUNTER → 2022-10-29 07:12 | Outpatient (CLI) | payer MEDICARE, OTHER, SELFPAY ==
--- NOTE | 2022-10-29 07:14 | DI.US.S_ITS ---
PROCEDURE: US ABDOMEN LIMITED INDICATIONS: ELEVATED LIVER ENZYMES TECHNIQUE: Real-time scanning was performed of the abdominal and retroperitoneal organs, with image documentation. COMPARISON: [facility], , US ABDOMEN LIMITED, 11/10/2021, 7:07. FINDINGS: Liver: Liver is normal in size and homogeneous in echotexture. Gallbladder: Unremarkable Biliary ducts: Intrahepatic bile ducts are non-dilated. Extrahepatic bile duct caliber measures 2.7 mm. Normal is 6-7 mm or less in diameter, or 10 mm or less post-cholecystectomy. Pancreas: Mostly obscured by bowel gas. No pancreatic ductal dilation. IMPRESSION: Normal right upper quadrant ultrasound. No findings to explain the patient's elevated liver enzymes. Dictated by: Man Cordero M.D. on 10/29/2022 at 9:48 Approved by: Man Cordero M.D. on 10/29/2022 at 9:49
== END ==
PROVIDERS: PCP Physician Assistant; Referring Provider Student in an Organized Health Care Education/Training Program; Visit Provider Student in an Organized Health Care Education/Training Program
DX: R74.8 Abnormal levels of other serum enzymes (principal)
CPT/HCPCS: 76705